=== PATIENT | female | born 1965 | race Caucasian/White ===

== ENCOUNTER → 2018-04-26 | Outpatient (CLI) | payer BC, OTHER ==
[~2018-04-26] MED LIST: ACET500T68 PO; CETI-169 PO; CHOL10005 PO; LISI-353 PO; MECL25TA9 PO; METF-408 PO; SPIR25TA78 PO; TRAM-420 PO
--- NOTE | 2018-04-26 16:28 | RADIOLOGY IMAGING REPORT ---
FACILITY: [facility] [place] PATIENT NAME: Tracy Ennis : 1965 MR: [id number] V: [id number] EXAM DATE: ORDERING PHYSICIAN: RADHA TREVIÑO TECHNOLOGIST: Location: [facility] Patient: Tracy Ennis : 1965 Visit/Account:[id number] Date of Sevice: 04/26/2018 SINUSES W/O CONTRAST COMPARISONS: None ADDITIONAL PERTINENT HISTORY: Congestion with sinusitis TECHNIQUE: Multiple axial images were obtained through the paranasal sinuses with coronal and sagitta l reformatted images. No IV contrast was administered. One of the following dose optimization techni ques was utilized in the performance of this exam: Automated exposure control; adjustment of the mA a nd/or kV according to the patient's size; or use of an iterative reconstruction technique. Specific details can be referenced in the facility's radiology CT exam operational policy. FINDINGS: Maxillary sinuses: Near complete opacification of the right maxillary sinus.. Moderate mucosal thick ening involving the left maxillary sinus. Frontal sinuses: Mild mucosal thickening involving both frontal sinuses.. Ethmoid air cells: Patchy opacification of the ethmoid air cells bilaterally.. Sphenoid sinuses: Mild mucosal thickening involving both sphenoid sinuses.. Nasal septum: Mild nasal septal deviation to the left.. Drainage pathways: Obstruction at the level of the right ostiomeatal complex as well as at the level of the left frontal recess. Paranasal variance: None Medial orbital berrios, cribriform plate, and orbital floors: Negative. Visualized bony skull base Negative. Visualized intracranial contents: Negative. Orbits and surrounding soft tissues: Negative. IMPRESSION: 1. Underlying obstructive paranasal sinus disease as discussed above. 2. Mild nasal septal deviation to the left. Report Dictated By: Emeka Lozada MD at 04/26/2018 4:21 PM Report E-Signed By: Emeka Lozada MD at 04/26/2018 4:24 PM WSN:[id number]
== END ==
LOC: CT 04:10
PROVIDERS: ATTEND Physician Assistant
DX: J34.2 Deviated nasal septum (principal); J01.90 Acute sinusitis, unspecified
CPT/HCPCS: 70486

== ENCOUNTER → 2018-07-11 | Outpatient (CLI) | payer BC ==
[~2018-07-11] MED LIST changes: +AMOX500T10 PO; +CETI-176 PO; +EMPA25TA; +FLUC150T40 PO; +FLUT16SP19 NS; +LACT1CAP12; +LEVO5TAB28 PO; +MONT10TA PO; -SPIR25TA78 PO; +SPIR25TA80 PO; +SULF-198 PO
[2018-07-11 09:39] LABS: PLATELET COUNT, AUTOMATED 300 K/uL (150-450)
--- NOTE | 2018-07-11 09:52 | EKG ---
FACILITY: [facility] [place] PATIENT NAME: AASHISH CALDERA : [id number] MR: [id number] V: [id number] EXAM DATE: ORDERING PHYSICIAN: LEE QUINTEROS TECHNOLOGIST: Test Reason : PRE-OP Blood Pressure : / mmHG Vent. Rate : 060 BPM Atrial Rate : 060 BPM P-R Int : 140 ms QRS Dur : 088 ms QT Int : 416 ms P-R-T Axes : 051 042 057 degrees QTc Int : 416 ms Normal sinus rhythm Borderline ECG When compared with ECG of 14-MAY-2016 11:12, No significant change was found Confirmed by Dangelo Camarena ([id number]) on 07/11/2018 11:11:54 AM Referred By: Confirmed By:Dangelo Pina
--- NOTE | 2018-07-11 10:36 | RADIOLOGY IMAGING REPORT ---
FACILITY: [facility] PATIENT NAME: Tracy Ennis : 1965 MR: [id number] V: [id number] EXAM DATE: ORDERING PHYSICIAN: LEE QUINTEROS TECHNOLOGIST: Location: [facility] Patient: Tracy Ennis : 1965 Visit/Account:[id number] Date of Sevice: 07/11/2018 Exam type: CHEST PA AND LAT History: asthma, sleep apnea, pre op clearance Comparison: May 15, 2014. Findings: There is mild hyperinflation of the lung bajwa. There is no evidence of acute appearing infiltrates , pleural effusions or pulmonary edema. No evidence of pneumothorax or pneumomediastinum. Cardiac s ilhouette is normal in size. There are moderate spondylotic changes of the thoracic spine. Surgical clips are present in the right upper quadrant abdomen. IMPRESSION: 1. Mild hyperinflation lung bajwa although no evidence of acute pulmonary consolidation Report Dictated By: Zee James MD at 07/11/2018 10:31 AM Report E-Signed By: Zee James MD at 07/11/2018 10:32 AM WSN:[id number]
== END ==
LOC: LAB 09:15
PROVIDERS: ATTEND Otolaryngology
DX: Z01.818 Encounter for other preprocedural examination (principal); E11.9 Type 2 diabetes mellitus without complications; I10 Essential (primary) hypertension; J45.909 Unspecified asthma, uncomplicated
CPT/HCPCS: 36415; 71046; 82040; 82247; 82310; 82374; 82435; 82565; 82947; 83036; 84075; 84132; 84155; 84295; 84450; 84460; 84520; 85025; 93005

== ENCOUNTER 2018-07-22 01:58 | Day surgery (SDC) | payer BC ==
[~2018-07-22] VITALS: Ht 162.6 cm; Wt 125.2 kg
[2018-07-22] MEDS: NORMOSOL R SOLN(*) 1000 ML BAG 1,000 ML IV PRN ×2 (07:43→09:09)
[2018-07-22 07:45] VITALS: BP 105/76
[2018-07-22] MEDS ORDERED: ONDANSETRON 4 MG/2 ML VIAL ONE (07:55)
[2018-07-22] MEDS ORDERED: DEXAMETHASONE SOD 4 MG/ML VIAL ONE (07:55)
[2018-07-22] MEDS ORDERED: LIDOCAINE MPF 1% 5 ML VIAL ONE (07:55)
[2018-07-22] MEDS ORDERED: PROPOFOL EMUL(*) 10MG/ML 20 ML 20 ML ONE (07:55)
[2018-07-22] MEDS ORDERED: fentaNYL CITR 100 MCG/2 ML AMP ONE ×3 (07:56→10:40)
[2018-07-22] MEDS ORDERED: KETAMINE HCL 200 MG/20 ML MDV ONE (07:57)
[2018-07-22] MEDS ORDERED: MIDAZOLAM 2 MG/2 ML VIAL IVP PRN (08:10)
[2018-07-22] MEDS ORDERED: LIDOCAINE/SOD BICARB 8.4% SYR ID ONE (08:10)
[2018-07-22] MEDS ORDERED: FAMOTIDINE 20 MG TAB PO ONE (08:10)
[2018-07-22] MEDS ORDERED: CLINDAMYCIN(*) 600 MG/NS 50 ML 50 ML IVPB ONE (08:10)
[2018-07-22] MEDS ORDERED: BACITRACIN OINT 15 GM TUBE TP ONE (09:01)
[2018-07-22] MEDS ORDERED: LIDO/EPI 1% MDV 1:100,000 20ML INFIL ONE (09:01)
[2018-07-22] MEDS ORDERED: NS(*) 0.9% 250 ML BAG 250 ML ONE (09:01)
[2018-07-22] MEDS ORDERED: OXYMETAZOLINE SPRAY 15 ML BTL ONE (09:01)
[2018-07-22] MEDS ORDERED: HYDR-4309 PO (10:18)
[2018-07-22] MEDS ORDERED: AZIT-17 PO (10:20)
[2018-07-22] MEDS ORDERED: SODI1PAC44 NS (10:21)
[2018-07-22] MEDS ORDERED: APAP/HYDROCODONE 325/5 TAB ONE (11:18)
[2018-07-22 11:28] VITALS: BP 136/84
[2018-07-22 12:10] VITALS: BP 149/75
[2018-07-22 12:59] VITALS: BP 149/76
[2018-07-22 13:00] VITALS: BP 141/71
--- NOTE | 2018-07-23 09:42 | OPERATIVE REPORT 1 ---
EVENT DATE: July 22, 2018 SURGEON: Og Robledo MD ANESTHESIOLOGIST: Napoleon Dowd MD ANESTHESIA: LMA. PROCEDURES PERFORMED 1. Bilateral maxillary antrostomies. 2. Bilateral anterior ethmoidectomies. PREOPERATIVE DIAGNOSES 1. Chronic bilateral maxillary sinusitis. 2. Chronic bilateral anterior ethmoidal sinusitis. POSTOPERATIVE DIAGNOSES 1. Chronic bilateral maxillary sinusitis. 2. Chronic bilateral anterior ethmoidal sinusitis. INDICATIONS Please refer to the preoperative note. DESCRIPTION OF PROCEDURE The patient was positively identified in the preoperative area. Risks again explained included, but were not limited to bleeding, infection, injury to the orbit, vision changes, injury to the skull base, cervical spinal fluid leak, and those associated with anesthesia. She acknowledged understanding of those risks. She was then brought back to the operative suite, placed supine on the operative table, and anesthesia was administered. I again reviewed the patient's preoperative CT of the sinuses. This was notable for opacification of the right maxillary and bilateral anterior ethmoid sinuses and mucosal thickening of the left maxillary sinus. I initially decongested the nose by placing cottonoids containing Afrin solution in the bilateral nasal cavities. These were subsequently removed. I began on the right side. Approximately 1 mL of 1% lidocaine with epinephrine was infiltrated in the lateral wall. An uncinectomy was performed. The natural maxillary ostium was identified. This was widened with back-biting forceps and the microdebrider blade. An anterior ethmoidectomy was performed. I then proceeded with the contralateral side. In a similar fashion, approximately 1 mL of 1% lidocaine with epinephrine was infiltrated into the lateral nasal wall. An uncinectomy was performed. The natural maxillary ostium was identified and widened with the microdebrider blade. An anterior ethmoidectomy was performed. Bilateral NasoPore was placed between the middle turbinate and the lateral nasal wall. The patient was then turned to Anesthesia for emergence. Estimated blood loss 25 mL. No complications. MTDD
== END 2018-07-22 11:28 | disposition home or self-care (01) ==
LOC: OR 01:58
PROVIDERS: ATTEND Otolaryngology
DX: J32.0 Chronic maxillary sinusitis (principal); J32.2 Chronic ethmoidal sinusitis; E11.9 Type 2 diabetes mellitus without complications
CPT/HCPCS: 31030; 31254; 36416; 82948; J1100; J2001; J2250; J2405; J2704; J3010; J3490; J7050